=== PATIENT | female | born 1990 | race Hispanic/Latino ===

== ENCOUNTER 2017-11-11 12:28 | Emergency (ER) | payer OTHER ==
[2017-11-11 12:35] VITALS: BMI 21.9
[2017-11-11 12:38] VITALS: BP 112/75; PULSE 82; RESP 17; TEMP 97.8; O2SAT 99
[2017-11-11] MEDS ORDERED: PROPARACAINE/FLUORESCEIN SOD 100 DROP/5 ML BOTTLE OU STA (12:57)
[2017-11-11] MEDS ORDERED: PROPARACAINE/FLUORESCEIN SOD 100 DROP/5 ML BOTTLE ONE (12:57)
--- NOTE | 2017-11-11 13:23 | ED PDOC ---
HPI: Skin/Bite Injury Time Seen by Provider: 11/11/17 12:45 Chief Complaint (Nursing): Abnormal Skin Integrity Chief Complaint (Provider): Concern for ocular History Per: Patient Additional Complaint(s): 27 yo female, no PMH, presents to ED in order to assess for ocular shingles. Pt developed rash to left side of face, specifically over left eyebrow on Sunday. Pt seen by [employer] in derm office as was started on Topical steroid and Antiviral, Valtrex. rash now appears scabbed over; however, Pt notes increased irritation to eye area 9after applying ice). RPt contacted her derm who advised ED visist for further evaluation. Pt notes irritation has improved since she stopped applying Ice. no tearing from eye, no visisla changes, no obvious lesions Past Medical History Reviewed: Nursing Documentation, Vital Signs Vital Signs: Last Vital Signs Temp 97.8 F 11/11/17 12:35 Pulse 82 11/11/17 12:35 Resp 17 11/11/17 12:35 BP 112/75 11/11/17 12:35 Pulse Ox 99 11/11/17 12:35 - Medical History PMH: No Chronic Diseases - Surgical History Surgical History: No Surg Hx - Family History Family History: States: No Known Family Hx - Living Arrangements Living Arrangements: With Family - Social History Alcohol: Social Drugs: Denies - Home Medications Home Medications: Ambulatory Orders Medication Instructions Recorded Methylprednisolone [Medrol Dose 4 mg PO DAILY #21 mg 11/11/17 Pack (21 tabs)] - Allergies Allergies/Adverse Reactions: Allergies Allergy/AdvReac Type Severity Reaction Status Date / Time Penicillins Allergy RASH Verified 11/11/17 12:44 Review of Systems ROS Statement: Except As Marked, All Systems Reviewed And Found Negative Skin: Positive for: Rash Physical Exam - Reviewed Nursing Documentation Reviewed: Yes Vital Signs Reviewed: Yes - Physical Exam Appears: Positive for: Well, Non-toxic, No Acute Distress Head Exam: Positive for: ATRAUMATIC, NORMAL INSPECTION, NORMOCEPHALIC Skin: Positive for: Normal Color, Warm, Rash ((+) scabbed over papules above left eyebrow, mild surrouding erythema) Eye Exam: Positive for: Normal appearance, EOMI, PERRL, Other (no lesions noted after stain). Negative for: Periorbital swelling, Periorbital tenderness, Conjunctival injection ENT: Positive for: Normal ENT Inspection Neck: Positive for: Normal, Painless ROM Cardiovascular/Chest: Positive for: Regular Rate, Rhythm Respiratory: Positive for: CNT, Normal Breath Sounds Gastrointestinal/Abdominal: Positive for: Normal Exam, Soft Back: Positive for: Normal Inspection Extremity: Positive for: Normal ROM Neurologic/Psych: Positive for: Alert, Oriented - ECG O2 Sat by Pulse Oximetry: 99 Medical Decision Making Medical Decision Making: fluoro stain applied, and no uptake noted. Pt educated on shingles and ocular shingles. Given RX for medrol dose pack to use in addition to Antiviral and topical steroid Disposition - Clinical Impression Clinical Impression: Shingles - Patient ED Disposition Is Patient to be Admitted: No - Disposition Disposition: Routine/Home Disposition Time: 13:41 Condition: STABLE Prescriptions: Methylprednisolone [Medrol Dose Pack (21 tabs)] 4 mg PO DAILY #21 mg Instructions: Shingles Forms: [facility] ([facility])
== END 2017-11-11 13:30 | disposition home or self-care (01) ==
LOC: H.ER 12:28
DX: B02.9 Zoster without complications (principal); Z88.0 Allergy status to penicillin